=== PATIENT | male | born 1975 | race Caucasian/White ===

== ENCOUNTER 2016-07-18 10:07 | Emergency (ER) | payer OTHER ==
[2016-07-18 10:26] VITALS: BP 126/74; PULSE 69; RESP 20; TEMP 98.3
[2016-07-18 11:40] VITALS: O2SAT 98
--- NOTE | 2016-07-18 11:50 | ED PDOC ---
HPI: Skin/Bite Injury Time Seen by Provider: 07/18/16 11:48 Chief Complaint (Nursing): Abnormal Skin Integrity Chief Complaint (Provider): skin lesion History Per: Patient History/Exam Limitations: no limitations Additional Complaint(s): 41yo M in ED for eval of rash diffuse on body x 1 year recently came from the [place]. Denies fever, chills, nausea vomiting abd pain, dysuria. has not tried anything for rash. states rash is itchy Past Medical History Reviewed: Historical Data, Nursing Documentation, Vital Signs Vital Signs: Last Vital Signs Temp 98.3 F 07/18/16 10:25 Pulse 69 07/18/16 10:25 Resp 20 07/18/16 10:25 BP 126/74 07/18/16 10:25 Pulse Ox 98 07/18/16 11:38 - Medical History PMH: No Chronic Diseases - Family History Family History: States: No Known Family Hx - Home Medications Home Medications: Ambulatory Orders Medication Instructions Recorded Fluconazole 150 mg PO ONCE #4 tablet 07/18/16 - Allergies Allergies/Adverse Reactions: Allergies Allergy/AdvReac Type Severity Reaction Status Date / Time No Known Allergies Allergy Verified 07/18/16 11:38 Review of Systems ROS Statement: Except As Marked, All Systems Reviewed And Found Negative Constitutional: Negative for: Fever, Chills Skin: Positive for: Rash Physical Exam - Reviewed Nursing Documentation Reviewed: Yes Vital Signs Reviewed: Yes - Physical Exam Appears: Positive for: Well, Non-toxic, No Acute Distress Head Exam: Positive for: ATRAUMATIC, NORMAL INSPECTION, NORMOCEPHALIC Skin: Positive for: Normal Color, Warm, Rash (diffuse: noted ringed raised lesion with central clearing. no vesicles noted non tender no nodules noted. ) Cardiovascular/Chest: Positive for: Regular Rate, Rhythm Respiratory: Positive for: CNT, Normal Breath Sounds Neurologic/Psych: Positive for: Alert, Oriented - ECG O2 Sat by Pulse Oximetry: 98 Medical Decision Making Medical Decision Making: dx: ring worm(tinea) plan: Rx for fluconazole f/u with dermatology Disposition - Clinical Impression Clinical Impression: Tinea corporis - Patient ED Disposition Is Patient to be Admitted: No Counseled Patient/Family Regarding: Diagnosis, Need For Followup, Rx Given - Disposition Disposition: Routine/Home Disposition Time: 11:56 Condition: STABLE Prescriptions: Fluconazole 150 mg PO ONCE #4 tablet Instructions: Tinea Corporis (ED) Print Language: MONTENEGRIN
== END 2016-07-18 12:55 | disposition home or self-care (01) ==
LOC: H.ER 10:07
DX: B35.4 Tinea corporis (principal); B35.9 Dermatophytosis, unspecified

== ENCOUNTER 2016-08-03 12:05 | Emergency (ER) | payer OTHER ==
[2016-08-03 12:10] VITALS: BP 129/86; PULSE 63; RESP 20; TEMP 98.1; O2SAT 100
--- NOTE | 2016-08-03 12:47 | ED PDOC ---
HPI: Back Time Seen by Provider: 08/03/16 12:23 Chief Complaint (Nursing): Back Pain Chief Complaint (Provider): back pain History Per: Patient Additional Complaint(s): pt c/o L low back pain ongoing for 5 months, worse x 3 days. no new fall or injury. c/o intermittant pain radiating to popliteal area, none now. no fever , cp, sob, abd pain, n/v/d, urinary c/o, incontinence, numbness, weakness distally. pt states he had MRI in [place] last month showing HNP. no otc or Rx meds attempted. Past Medical History Reviewed: Historical Data, Nursing Documentation, Vital Signs Vital Signs: Last Vital Signs Temp 98.1 F 08/03/16 12:09 Pulse 63 08/03/16 12:09 Resp 20 08/03/16 12:09 BP 129/86 08/03/16 12:09 Pulse Ox 100 08/03/16 12:09 - Medical History PMH: No Chronic Diseases - Family History Family History: States: No Known Family Hx - Social History Current smoker - smoking cessation education provided: No Alcohol: None Drugs: Denies - Home Medications Home Medications: Ambulatory Orders Medication Instructions Recorded Cyclobenzaprine [Cyclobenzaprine 10 mg PO Q8 #15 tab 08/03/16 HCl] Naproxen [Naprosyn Tab] 375 mg PO BID #20 tab 08/03/16 - Allergies Allergies/Adverse Reactions: Allergies Allergy/AdvReac Type Severity Reaction Status Date / Time No Known Allergies Allergy Verified 08/03/16 12:28 Review of Systems ROS Statement: Except As Marked, All Systems Reviewed And Found Negative Musculoskeletal: Positive for: Back Pain Physical Exam - Reviewed Nursing Documentation Reviewed: Yes Vital Signs Reviewed: Yes - Physical Exam Appears: Positive for: Well, Non-toxic, No Acute Distress Skin: Positive for: Normal Color, Warm, DRY Cardiovascular/Chest: Positive for: Regular Rate, Rhythm Respiratory: Positive for: CNT, Normal Breath Sounds Gastrointestinal/Abdominal: Positive for: Normal Exam, Bowel Sounds, Soft. Negative for: Tenderness Back: Positive for: Normal Inspection, Other (tender L SI area. ambulates w/o difficulty. DTRs 2+ B/L LE. strength 5/5 B/L LE. ). Negative for: Vertebral Tenderness, Decreased ROM, Muscle Spasm Extremity: Positive for: Normal ROM. Negative for: Tenderness Neurologic/Psych: Positive for: Alert, Oriented. Negative for: Motor/Sensory Deficits - ECG O2 Sat by Pulse Oximetry: 100 Disposition - Clinical Impression Clinical Impression: Back pain - Patient ED Disposition Is Patient to be Admitted: No - Disposition [facility]errals: [facility] [Outside] Disposition: Routine/Home Disposition Time: 12:49 Condition: GOOD Prescriptions: Cyclobenzaprine [Cyclobenzaprine HCl] 10 mg PO Q8 #15 tab Naproxen [Naprosyn Tab] 375 mg PO BID #20 tab Instructions: Chronic Back Pain (ED) Forms: [facility] ED School/Work Excuse
== END 2016-08-03 13:38 | disposition home or self-care (01) ==
LOC: H.ER 12:05
DX: M54.5 Low back pain (principal)

== ENCOUNTER 2016-09-16 08:40 | Emergency (ER) | payer OTHER ==
[2016-09-16 08:42] VITALS: BMI 26.4
[2016-09-16 08:44] VITALS: TEMP 98.4
[2016-09-16 10:12] VITALS: BP 130/74; PULSE 72; RESP 16; O2SAT 99
--- NOTE | 2016-09-16 10:21 | ED PDOC ---
HPI: Skin/Bite Injury Time Seen by Provider: 09/16/16 09:09 Chief Complaint (Nursing): Abnormal Skin Integrity Chief Complaint (Provider): Abnormal Skin Integrity History Per: Patient History/Exam Limitations: no limitations Onset/Duration Of Symptoms: Days Current Symptoms Are (Timing): Still Present Additional Complaint(s): 41 y/o male presents to the emergency department with a complaint of a blanching rash on his back, upper legs, and truck that began this morning. Reports this problem had been intermittent for a couple of years and is unsure of any triggering exposures. Patient showed pictures of this morning and now the rash miraculously grew. Denies known allergy, shortness of breath, swelling , trouble swallowing, weight loss, fever, vomiting, nausea, diarrhea, weakness, or headache. Of note, patient had visited the ER previously for similar symptoms in late june and was treated for tinea corpus. Past Medical History Reviewed: Historical Data, Nursing Documentation, Vital Signs Vital Signs: Last Vital Signs Temp 98.4 F 09/16/16 08:42 Pulse 72 09/16/16 10:11 Resp 16 09/16/16 10:11 BP 130/74 09/16/16 10:11 Pulse Ox 99 09/16/16 10:35 - Medical History PMH: No Chronic Diseases - Surgical History Surgical History: No Surg Hx - Family History Family History: States: Unknown Family Hx - Social History Current smoker - smoking cessation education provided: No Alcohol: None Drugs: Denies - Home Medications Home Medications: Ambulatory Orders Medication Instructions Recorded Cyclobenzaprine [Cyclobenzaprine 10 mg PO Q8 #15 tab 08/03/16 HCl] Naproxen [Naprosyn Tab] 375 mg PO BID #20 tab 08/03/16 Hydroxyzine HCl 25 mg PO TID PRN #12 tablet 09/16/16 Prednisone 50 mg PO DAILY #4 tab 09/16/16 - Allergies Allergies/Adverse Reactions: Allergies Allergy/AdvReac Type Severity Reaction Status Date / Time No Known Allergies Allergy Verified 09/16/16 08:50 Review of Systems Constitutional: Negative for: Fever, Other (Weight or generalized swelling ) ENT: Negative for: Other (trouble with swallowing) Respiratory: Negative for: Shortness of Breath Gastrointestinal: Negative for: Nausea, Vomiting, Abdominal Pain, Diarrhea Skin: Positive for: Rash (To the back, upper legs, and trunk ) Neurological: Negative for: Weakness, Headache Physical Exam - Reviewed Nursing Documentation Reviewed: Yes Vital Signs Reviewed: Yes - Physical Exam Appears: Positive for: Non-toxic, No Acute Distress Head Exam: Positive for: ATRAUMATIC, NORMOCEPHALIC Skin: Positive for: Warm, Dry, Rash (Mild non urticarial macular rash to the left upper leg, to the left flank and neck). Negative for: Normal Color Neck: Positive for: Normal, Supple Cardiovascular/Chest: Positive for: Regular Rate, Rhythm. Negative for: Murmur Respiratory: Positive for: Normal Breath Sounds. Negative for: Accessory Muscle Use, Respiratory Distress Neurologic/Psych: Positive for: Alert, Oriented - ECG O2 Sat by Pulse Oximetry: 99 (RA) Pulse Ox Interpretation: Normal Medical Decision Making Medical Decision Making: Time: 9:09 Initial impression: Rash Initial plan: --Benadryl 25 mg PO --Revaluation Time: 10:00 --Old charts were reviewed showing he was here in late june and prescribed for tinea corpus. Although the rash appears different therefore we will treat with Prednisone, Benadryl, and trial of Hydroxyzine. --Patient recommended to follow up with copier technician and electrocardiograph operator since symptoms are waxing and waning with unclear diagnosis. Also recommended to sunlight exposure for possible pitalysis rosacea. Upon provider reevaluation patient is feeling better, is medically stable, and requires no further treatment in the ED at this time. Patient will be discharged home with Rx for Hydroxyzine HCl 25 mg and Prednisone 50 mg. Counseling was provided and all questions were answered regarding diagnosis and need for follow up with Dr. Arcadio Jackson. There is agreement to discharge plan. Return if symptoms persist or worsen. Clinical Impression: Rash Scribe Attestation: Documented by Nay Weaver, acting as a scribe for Olayinka Brooks MD. Provider Scribe Attestation: All medical record entries made by the Scribe were at my direction and personally dictated by me. I have reviewed the chart and agree that the record accurately reflects my personal performance of the history, physical exam, medical decision making, and the department course for this patient. I have also personally directed, reviewed, and agree with the discharge instructions and disposition. Disposition - Clinical Impression Clinical Impression: Rash - Disposition Referrals: Arcadio Jackson MD [Staff Provider] - Disposition: Routine/Home Disposition Time: 10:00 Condition: STABLE Additional Instructions: Return to ER for any worse or new symptoms. Prescriptions: Hydroxyzine HCl 25 mg PO TID PRN #12 tablet PRN Reason: Itching / Pruritus Prednisone 50 mg PO DAILY #4 tab Instructions: Acute Rash (ED) Print Language: YORUBA
== END 2016-09-16 10:12 | disposition home or self-care (01) ==
LOC: H.ER 08:40
DX: R21 Rash and other nonspecific skin eruption (principal)